=== PATIENT | male | born 1955 | race Caucasian/White ===

== ENCOUNTER 2020-10-10 15:19 | Emergency (ER) | payer MEDICARE, BC ==
[~2020-10-10] VITALS: Ht 177.8 cm; Wt 79.4 kg
[2020-10-10 15:34] VITALS: BP 125/90
[2020-10-10] MEDS ORDERED: LIDOCAINE-MPF 1%, 5ML ONE (15:47)
[2020-10-10] MEDS ORDERED: BUPIVACAINE/PF 0.5% ONE (15:47)
--- NOTE | 2020-10-10 15:52 | NUR ---
PT PRESENTS TO ED WITH C/O DOG BITE TO R LEG AND R ARM. APPROX 4 BY 2 CM LACERATION NOTED TO R PISANO. YAMILET PAEZ AT BEDSIDE FOR EVAL.
[2020-10-10] MEDS ORDERED: DIPH,PERTUSS(ACELL),TET VAC/PF 0.5 ML IM-VACC ONE ×2 (16:00)
--- NOTE | 2020-10-10 16:04 | NUR ---
xr at bedside
[2020-10-10] MEDS ORDERED: NEOSPORIN OINT. PKT 1 PACKET ONE (16:22)
--- NOTE | 2020-10-10 17:02 | NUR ---
discharge instructions reviewed, pt verbalized understanding. ambulatory to discharge with steady gait.
== END 2020-10-10 17:09 | disposition home or self-care (01) ==
LOC: ED 17:00
DX: S51.831A Puncture wound without foreign body of right forearm, initial encounter (principal); S51.851A Open bite of right forearm, initial encounter; S81.851A Open bite, right lower leg, initial encounter; W54.0XXA Bitten by dog, initial encounter; Y93.89 Activity, other specified; Y92.89 Other specified places as the place of occurrence of the external cause; Y99.8 Other external cause status
CPT/HCPCS: 90471; 90715

== ENCOUNTER 2020-10-24 09:11 | Emergency (ER) | payer MEDICARE, BC ==
[~2020-10-24] VITALS: Ht 177.8 cm; Wt 79.1 kg
[2020-10-24 09:15] VITALS: BP 142/73
--- NOTE | 2020-10-24 10:29 | NUR ---
pt presents to ed with c/o wound on L stephen from dog bite on 10/10 that has not improved with ABX. wound with slough noted to Faisal stephen. jonathan Adkins at bedside for eval.
--- NOTE | 2020-10-24 10:57 | NUR ---
wound dressed per MD order, pt toelrated well. discharge instructions reviewed, pt educated on discharge, follow-up, prescription, and return criteria, pt verbalized understanding. ambulatory to discharge desk with steady gait.
== END 2020-10-24 11:00 | disposition home or self-care (01) ==
LOC: ED 10:41
DX: L03.115 Cellulitis of right lower limb (principal); Z48.01 Encounter for change or removal of surgical wound dressing
CPT/HCPCS: 99283

== ENCOUNTER 2020-10-25 09:55 | Outpatient (CLI) | payer MEDICARE, BC | END 2020-10-25 23:59 | disposition home or self-care (01) | LOC: WOUND 09:55 | PROVIDERS: ATTEND Internal Medicine | DX: S81.851A Open bite, right lower leg, initial encounter (principal); S81.801A Unspecified open wound, right lower leg, initial encounter; L03.115 Cellulitis of right lower limb; W54.0XXA Bitten by dog, initial encounter; Y93.89 Activity, other specified; Y92.89 Other specified places as the place of occurrence of the external cause; Y99.8 Other external cause status | CPT/HCPCS: 11043; 11046; G0463; 99203 ==

== ENCOUNTER → 2020-11-08 | Outpatient (CLI) | payer MEDICARE, BC | END | disposition home or self-care (01) | LOC: WOUND 09:19 | PROVIDERS: ATTEND Internal Medicine | DX: S81.851D Open bite, right lower leg, subsequent encounter (principal); L03.115 Cellulitis of right lower limb; W54.0XXD Bitten by dog, subsequent encounter | CPT/HCPCS: 97597 ==

== ENCOUNTER 2020-11-22 10:30 | Outpatient (CLI) | payer MEDICARE, BC | END 2020-11-22 23:59 | disposition home or self-care (01) | LOC: WOUND 10:30 | PROVIDERS: ATTEND Internal Medicine | DX: S81.851D Open bite, right lower leg, subsequent encounter (principal); L03.115 Cellulitis of right lower limb; W54.0XXD Bitten by dog, subsequent encounter | CPT/HCPCS: 97597 ==

== ENCOUNTER 2020-12-08 11:28 | Outpatient (CLI) | payer MEDICARE, BC | END 2020-12-08 23:59 | disposition home or self-care (01) | LOC: WOUND 11:28 | PROVIDERS: ATTEND Internal Medicine | DX: S81.801D Unspecified open wound, right lower leg, subsequent encounter (principal); S81.851D Open bite, right lower leg, subsequent encounter; L03.115 Cellulitis of right lower limb; W54.0XXD Bitten by dog, subsequent encounter; X58.XXXD Exposure to other specified factors, subsequent encounter | CPT/HCPCS: 99201; G0463 ==